=== PATIENT | female | born 1990 | race American Indian/Alaskan Native ===

== ENCOUNTER 2016-08-15 15:05 | Emergency (ER) | payer SELFPAY ==
[2016-08-15] MEDS ORDERED: TYLENOL PO ONE (19:29)
--- NOTE | 2016-08-15 19:29 | Emergency Department Report ---
HPI - General Chief Complaint: Upper Respiratory Infection Time Seen by Provider: 08/15/16 19:09 - HPI HPI: Patient here complaining of productive cough with green mucus since yesterday. She complained that she's feeling feverish and chills since yesterday. and She did not take any medication today. She complained that her neck is hurting at the sides and it hurts when she takes a deep breath. She said it also hurts when she coughs. She denies any chest pain when she is not coughing and she denies any shortness of breath. She reports runny nose. Chest pain with cough and is 5 out of 10 neck pain is 5 out of 10 and she is having body aches at 5 out of 10. ED Past Medical Hx - Past Medical History Previous Medical History?: No - Surgical History Past Surgical History?: No - Family History Family history: no significant - Social History Smoking Status: Never Smoker Substance Use Type: Marijuana - Medications Home Medications: Home Medications Medication Instructions Recorded Confirmed Last Taken Type Fluticasone [Flonase] 1 spray NS QDAY #1 bottle 08/15/16 Unknown Rx Loratadine [Claritin] 10 mg PO DAILY #14 tablet 08/15/16 Unknown Rx guaiFENesin/CODEINE [Robitussin AC] 5 ml PO TID PRN #75 oral.liqd 08/15/16 Unknown Rx predniSONE [Deltasone] 50 mg PO QAM #1 tablet 08/15/16 Unknown Rx ED Review of Systems ROS: Stated complaint: FLU SYMPTOMS Other details as noted in HPI Comment: Unobtainable due to pts medical conditions Constitutional: chills Eyes: denies: eye discharge ENT: congestion Respiratory: cough. denies: shortness of breath, SOB with exertion, SOB at rest , stridor Cardiovascular: chest pain (chest pain with coughing). denies: palpitations Gastrointestinal: denies: abdominal pain, nausea, vomiting Musculoskeletal: arthralgia. denies: back pain Skin: denies: rash Neurological: denies: headache Physical Exam - Physical Exam Vital Signs: Vital Signs 08/15/16 15:20 Temperature 100.0 F H Pulse Rate 103 H Respiratory 18 Rate Blood Pressure 139/97 O2 Sat by Pulse 96 Oximetry Vital Signs 08/15/16 08/15/16 08/15/16 15:20 19:39 21:07 Temperature 100.0 F H 98.3 F 99.2 F Pulse Rate 103 H 94 H 92 H Respiratory 18 18 18 Rate Blood Pressure 139/97 Blood Pressure 139/92 [Left] O2 Sat by Pulse 96 99 100 Oximetry General: This is a 26-year-old female well-nourished well-developed in no acute distress. Physical Exam: Head: Normocephalic atraumatic Mouth: Moist, no pharyngeal exudate or erythema. Uvula is midline and oral airway is patent. No facial swelling. No peritonsillar abscesses. Nose: Congested with erythema to mucosa. Clear Drainage. Maxillary and frontal sinuses nontender to palpate Neck: Supple, no C-spine tenderness, no tracheal deviation. Nontender to palpate. no adenopathy Ears: Bilateral TMs congested without erythema. Bilateral EAC without any redness swelling or drainage. Abdomen: Soft, nontender to palpate in all quadrants, normal bowel sounds in all quadrant and negative CVA tenderness bilaterally. Neurological: GCS of 15, alert and oriented 3. Speech is clear and fluid. Normal gait. No motor or sensory deficit. Normal reflexes. No facial drooping. No pronator drift and negative Romberg. Eyes: Bilateral pupils equal and reactive to light, bilateral EOM intact. Bilateral sclera and conjunctiva without injection. Normal accommodation. No nystagmus Lungs: Clear to auscultate bilaterally no rhonchi wheezes or rales. Normal work of breathing extremity; No CCE. +2 pulses. No neurovascular compromise Cardiovascular: S1-S2, she is tachycardic at 103. Regular rhythm. No murmurs. Skin: clean Dry and intact no rash no lesions Psych: Normal mood and behavior ED Course Vital Signs 08/15/16 15:20 Temperature 100.0 F H Pulse Rate 103 H Respiratory 18 Rate Blood Pressure 139/97 O2 Sat by Pulse 96 Oximetry Vital Signs 08/15/16 08/15/16 08/15/16 15:20 19:39 21:07 Temperature 100.0 F H 98.3 F 99.2 F Pulse Rate 103 H 94 H 92 H Respiratory 18 18 18 Rate Blood Pressure 139/97 Blood Pressure 139/92 [Left] O2 Sat by Pulse 96 99 100 Oximetry - Reevaluation(s) Reevaluation #1: 08/15/16 21:14 Patient received Tylenol 975 mg in emergency room, She is able to tolerate oral liquids in emergency room. 08/15/16 21:14 ED Medical Decision Making - Lab Data Influenza A and B- - Medical Decision Making ED course: Discussed the patient that she has viral upper respiratory tract infection with cough and does not need to be on any antibiotic but I'll put her on steroids, Flonase and Claritin. So discussed with her that I will give her guaifenesin and codeine for her cough. With her that her influenza A and B test is negative .discussed with her that she needs to rest, drink a lot of water and take vitamin C which is the immune system booster. Patient voiced understanding of discharge diagnosis and treatment plan. Discharged home with prescription for prednisone, Flonase, Claritin and guaifenesin with codeine. Critical care attestation.: If time is entered above; I have spent that time in minutes in the direct care of this critically ill patient, excluding procedure time. ED Disposition Clinical Impression: Viral upper respiratory tract infection with cough, Fever in adult, Viral syndrome Disposition: DISCHARGED TO HOME OR SELFCARE Is pt being admited?: No Does the pt Need Aspirin: No Condition: Stable Instructions: Upper Respiratory Infection (ED), Acute Cough (ED), Viral Syndrome (ED) Additional Instructions: Inrease her fluid intake to 2-3 L of water per day. Take medication as prescribed Rest for 72 hours and take vitamin C. read discharge instruction and viral syndrome and fever in adults. He is do not drive or operate heavy machinery while taking and cough medicine as this will cause drowsiness Prescriptions: Fluticasone [Flonase] 1 spray NS QDAY #1 bottle guaiFENesin/CODEINE [Robitussin AC] 5 ml PO TID PRN #75 oral.liqd PRN Reason: Cough Loratadine [Claritin] 10 mg PO DAILY #14 tablet predniSONE [Deltasone] 50 mg PO QAM #1 tablet Referrals: PRIMARY CARE,MD [Primary Care Provider] - 3-5 Days Forms: Accompanied Note, Work/School Release Form(ED)
[2016-08-15 19:39] VITALS: BP 139/92
== END 2016-08-15 21:27 | disposition home or self-care (01) ==
LOC: ED 15:05
DX: J06.9 Acute upper respiratory infection, unspecified (principal); B34.9 Viral infection, unspecified; R50.9 Fever, unspecified; F12.10 Cannabis abuse, uncomplicated
CPT/HCPCS: 87400; 99282

== ENCOUNTER 2017-03-11 20:16 | Emergency (ER) | payer OTHER ==
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
[2017-03-12 11:35] VITALS: BP 153/93
== END 2017-03-12 02:20 | disposition home or self-care (01) ==
LOC: ED 20:16
DX: M54.5 Low back pain (principal); M62.830 Muscle spasm of back; F12.10 Cannabis abuse, uncomplicated; F17.200 Nicotine dependence, unspecified, uncomplicated; V89.2XXA Person injured in unspecified motor-vehicle accident, traffic, initial encounter; Y93.9 Activity, unspecified; Y99.9 Unspecified external cause status; Y92.410 Unspecified street and highway as the place of occurrence of the external cause
CPT/HCPCS: 99282